=== PATIENT | female | born 1955 | race Asian ===

== ENCOUNTER 2016-11-10 19:55 | Inpatient (IN) | payer MEDICAID, OTHER ==
[~2016-11-10] VITALS: Ht 157.5 cm; Wt 47.6 kg
[2016-11-10] MEDS ORDERED: Morphine Sulfate 4mg/ml Inj IVP ONE ×2 (21:00→22:45)
--- NOTE | 2016-11-10 21:24 | Emergency Room Report ---
History of Present Illness General Chief Complaint: Abdominal Pain Source: Patient (STEPHEN RITTER M.D.) Present Illness HPI 61 YO F with acute onset left sided substernal non-radiating chest pain without ASSOC sob, nv/diaphoresis AND RLQ pain, sharp non-radiating. Denies urinary complaints. Denies history of renal stones, ovarian cysts. Has history of "abnormal heart beat." Not on medication. EMR indicates previous history of PVCs. (STEPHEN RITTER M.D.) Allergies: Coded Allergies: No Known Allergies (Unverified , 06/30/15) Patient History Past Surgical History: nora Pertinent Family History: none Social History: Denies: alcohol use, drug use, smoking Last Menstrual Period: 2014 Now: No Immunizations: UTD Reviewed Nursing Documentation: PMH: Agreed, PSxH: Agreed (STEPHEN RITTER M.D.) Nursing Documentation-PMH Past Medical History: No History, Except For (STEPHEN RITTER M.D.) Review of Systems All Other Systems: negative except mentioned in HPI (STEPHEN RITTER M.D.) Physical Exam Vital Signs Date Time Temp Pulse Resp B/P Pulse Ox O2 Delivery O2 Flow Rate FiO2 11/10/16 20:24 98.1 72 16 108/61 99 Room Air Sp02 EP Interpretation: reviewed, normal General Appearance: normal inspection, well appearing, no apparent distress, alert Head: normocephalic, atraumatic Eyes: bilateral eye EOMI, bilateral eye PERRL ENT: normal ENT inspection, hearing grossly normal, normal voice Neck: normal inspection, full range of motion, supple, no bony tend Respiratory: normal inspection, lungs clear, normal breath sounds, no respiratory distress, no retraction, no wheezing Cardiovascular #1: regular rate, rhythm, no edema Gastrointestinal: normal inspection, normal bowel sounds, soft, no guarding, no hernia, guarding, other - +++TTP RLQ with guarding. 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 NO CAD risk factors. ECG is NSR. CXR unremarkable for PTX, PNA, cardiomegaly. Will check labs, troponin 2) RLQ pain with guarding. PLAN: Labs, IV morphine, CTAP to r/o cyst, appy (STEPHEN RITTER M.D.) ER Course Please see note from Dr. Ritter. CT with appendicitis. Discussed with Dr. Gibson. Pain meds given. IV hydration and antibiotics begun. Laboratory Tests Test 11/10/16 21:25 11/11/16 06:50 White Blood Count 15.3 K/UL (4.8-10.8) H 14.2 K/UL (4.8-10.8) H Red Blood Count 4.42 M/UL (4.20-5.40) 4.28 M/UL (4.20-5.40) Hemoglobin 12.9 G/DL (12.0-16.0) 12.5 G/DL (12.0-16.0) Hematocrit 40.0 % (37.0-47.0) 38.0 % (37.0-47.0) Mean Corpuscular Volume 91 FL (80-99) 89 FL (80-99) Mean Corpuscular Hemoglobin 29.2 PG (27.0-31.0) 29.3 PG (27.0-31.0) Mean Corpuscular Hemoglobin Concent 32.3 G/DL (32.0-36.0) 33.0 G/DL (32.0-36.0) Red Cell Distribution Width 12.5 % (11.6-14.8) 12.5 % (11.6-14.8) Platelet Count 227 K/UL (150-450) 227 K/UL (150-450) Mean Platelet Volume 5.8 FL (6.5-10.1) L 6.2 FL (6.5-10.1) L Neutrophils (%) (Auto) 79.9 % (45.0-75.0) H % (45.0-75.0) Lymphocytes (%) (Auto) 10.0 % (20.0-45.0) L % (20.0-45.0) Monocytes (%) (Auto) 8.5 % (1.0-10.0) % (1.0-10.0) Eosinophils (%) (Auto) 0.5 % (0.0-3.0) % (0.0-3.0) Basophils (%) (Auto) 1.0 % (0.0-2.0) % (0.0-2.0) Sodium Level 140 mEQ/L (135-145) 141 mEQ/L (135-145) Potassium Level 3.8 mEQ/L (3.4-4.9) 4.4 mEQ/L (3.4-4.9) Chloride Level 100 mEQ/L (98-107) 103 mEQ/L (98-107) Carbon Dioxide Level 29 mEQ/L (20-30) 25 mEQ/L (20-30) Anion Gap 11 (5-15) 13 (5-15) Blood Urea Nitrogen 17 mg/dL (7-23) 14 mg/dL (7-23) Creatinine 0.7 mg/dL (0.5-0.9) 0.6 mg/dL (0.5-0.9) Estimate Glomerular Filtration Rate > 60 mL/min (>60) > 60 mL/min (>60) Glucose Level 101 mg/dL (74-106) 153 mg/dL (74-106) H Calcium Level 9.1 mg/dL (8.6-10.2) 8.7 mg/dL (8.6-10.2) Total Bilirubin 0.5 mg/dL (0.0-1.2) 0.5 mg/dL (0.0-1.2) Aspartate Amino Transferase (AST) 22 U/L (5-40) 48 U/L (5-40) H Alanine Aminotransferase (ALT) 22 U/L (3-33) 43 U/L (3-33) H Alkaline Phosphatase 66 U/L (35-104) 81 U/L (35-104) Total Creatine Kinase 60 U/L (26-140) Creatine Kinase MB 1.8 ng/mL (< 3.8) Creatine Kinase MB Relative Index 3.0 Troponin I < 0.30 ng/mL (<=0.30) Total Protein 6.9 g/dL (6.6-8.7) 6.1 g/dL (6.6-8.7) L Albumin 4.3 g/dL (3.5-5.2) 3.9 g/dL (3.5-5.2) Globulin 2.6 g/dL 2.2 g/dL Albumin/Globulin Ratio 1.6 (1.0-2.7) 1.7 (1.0-2.7) Differential Total Cells Counted 100 Neutrophils % (Manual) 88 % (45-75) H Lymphocytes % (Manual) 5 % (20-45) L Monocytes % (Manual) 5 % (1-10) Eosinophils % (Manual) 0 % (0-3) Basophils % (Manual) 0 % (0-2) Band Neutrophils 2 % (0-8) Platelet Estimate Adequate Platelet Morphology Normal Red Blood Cell Morphology Normal PTT 28 SEC (23-33) Amylase Level 56 U/L (10-110) Lipase 26 U/L (< 60) (Sunil Carson M.D.) EKG Diagnostic Results Rate: normal Rhythm: NSR ST Segments: no acute changes ASA given to the pt in ED: No (STEPHEN RITTER M.D.) Rhythm Strip Diag. Results EP Interpretation: yes Rate: 63 (STEPHEN RITTER M.D.) Chest X-Ray Diagnostic Results EP Interpretation: Yes Findings: no consolidation, no effusion, no pneumothorax, no acute cardiopulmonary disease Number of Views: 1 (STEPHEN RITTER M.D.) CT/MRI/US Diagnostic Results CT/MRI/US Diagnostic Results : Imaging Test Ordered: abd Impression acute appendicitis (Sunil Carson M.D.) Last Vital Signs Date Time Temp Pulse Resp B/P Pulse Ox O2 Delivery O2 Flow Rate FiO2 11/10/16 20:24 98.1 72 16 108/61 99 Room Air Status: improved (STEPHEN RITTER M.D.) Status: improved (Sunil Carson M.D.) Disposition: ADMITTED INPATIENT Condition: Serious Referrals: [employer],REFERRIN (PCP) STEPHEN RITTER M.D. Nov 10, 2016 21:24 Sunil Carson M.D. Nov 10, 2016 23:57
[2016-11-10 22:02] LABS: EOSINOPHILS % (AUTO) 0.5 % (0.0-3.0); MEAN CORPUSCULAR HEMOGLOBIN 29.2 PG (27.0-31.0); MEAN CORPUSCULAR HGB CONC 32.3 G/DL (32.0-36.0); MEAN CORPUSCULAR VOLUME 91 FL (80-99); MEAN PLATELET VOLUME 5.8 FL (6.5-10.1); MONOCYTES % (AUTO) 8.5 % (1.0-10.0); NEUTROPHILS % (AUTO) 79.9 % (45.0-75.0); PLATELET COUNT 227 K/UL (150-450); RED BLOOD COUNT 4.42 M/UL (4.20-5.40); RED CELL DISTRIBUTION WIDTH 12.5 % (11.6-14.8); WHITE BLOOD COUNT 15.3 K/UL (4.8-10.8)
[2016-11-10 22:10] LABS: TROPONIN I < 0.30 ng/mL (<=0.30)
[2016-11-10 22:13] LABS: ALANINE AMINOTRANSFERASE 22 U/L (3-33); ALBUMIN/GLOBULIN RATIO 1.6 (1.0-2.7); ANION GAP 11 (5-15); ASPARTATE AMINO TRANSFERASE 22 U/L (5-40); CALCIUM 9.1 mg/dL (8.6-10.2); CARBON DIOXIDE 29 mEQ/L (20-30); CHLORIDE 100 mEQ/L (98-107); CREATININE 0.7 mg/dL (0.5-0.9); GLOMERULAR FILTRATION RATE > 60 mL/min (>60); HEMOLYSIS 10; POTASSIUM 3.8 mEQ/L (3.4-4.9); SODIUM 140 mEQ/L (135-145); TOTAL PROTEIN 6.9 g/dL (6.6-8.7)
[2016-11-10 22:18] VITALS: BP 102/61
[2016-11-10 22:23] LABS: CKMB 1.8 ng/mL (< 3.8)
[2016-11-10] MEDS ORDERED: fentaNYL 100 mcg/2 mL IV ONE (23:00)
[2016-11-10 23:10] VITALS: BP 111/60
[2016-11-10] MEDS ORDERED: Nitroglycerin Subl 0.4mg tab (Bottle Of 25) SL PRN (23:15)
[2016-11-10] MEDS ORDERED: Miralax 17gm pkt ORAL PRN (23:15)
[2016-11-10] MEDS ORDERED: Mylanta II UD 30ml ORAL PRN (23:15)
[2016-11-10] MEDS ORDERED: Morphine Sulfate 2mg/ml Inj IVP PRN (23:15)
[2016-11-11] VITALS (16 sets, daily range): BP systolic 90–122; BP diastolic 54–74
[2016-11-11] MEDS ORDERED: Cefepime 1gm vial ONE (00:20)
[2016-11-11] MEDS ORDERED: Propofol 10mg/ml 20ml IV ONE (00:37)
[2016-11-11] MEDS ORDERED: Bupivacaine 0.25% Inj 30ml INJ ONE (00:37)
[2016-11-11] MEDS ORDERED: Bupivacaine w/Epi 0.25% 30ml Vial INJ ONE (00:37)
[2016-11-11] MEDS ORDERED: Bacitracin 50000 Units Vial ONE (00:37)
[2016-11-11] MEDS ORDERED: VITAMIN E100 UNI2 ORAL (00:52)
[2016-11-11] MEDS ORDERED: VITAMIN C250 MG ORAL (00:52)
[2016-11-11] MEDS ORDERED: VITAMIN B-12100 MCG ORAL (00:52)
[2016-11-11] MEDS ORDERED: ASPIR 8181 MG ORAL (00:52)
[2016-11-11] MEDS ORDERED: D5 1/2NS 1,000 ML IV SCH (01:00)
--- NOTE | 2016-11-11 01:06 | Pre-Procedure Note/Attestation ---
Pre-Procedure Note/Attestation Complete Prior to Procedure Planned Procedure: not applicable Procedure Narrative: Laparocopic appendectomy possible open appendectomy Indications for Procedure Pre-Operative Diagnosis: acute appendicitis Attestation I attest that I discussed the nature of the procedure; its benefits; risks and complications; and alternatives (and the risks and benefits of such alternatives ), prior to the procedure, with the patient (or the patient's legal utility sales representative). I attest that, if there was a reasonable possibility of needing a blood transfusion, the patient (or the patient's legal utility sales representative) was given the [facility] standardized written summary, pursuant to the [place] Blood Safety Act ([place] Health and Safety Code # 1645, as amended). I attest that I re-evaluated the patient just prior to the surgery and that there has been no change in the patient's H&P, except as documented below: LISBETH SANDERSON Nov 11, 2016 01:06
--- NOTE | 2016-11-11 01:14 | Anethesia Preoperative Eval ---
Anesthesia Pre-op PMH/ROS General Date of Evaluation: Nov 11, 2016 Anesthesiologist: Willis ASA Score: ASA 2 Mallampati Score Class I : Soft palate, uvula, fauces, pillars visible Class II: Soft palate, uvula, fauces visible Class III: Soft palate, base of uvula visible Class IV: Only hard plate visible Mallampati Classification: Class II Surgeon: Paige Diagnosis: Acute appendicitis Surgical Procedure: Laparoscopic appendectomy Anesthesia History: none Family History: no anesthesia problems Allergies: Coded Allergies: No Known Allergies (Unverified , 06/30/15) Medications: see eMAR Past Medical History Cardiovascular: Reports: HTN, Denies: CAD, [place], arrhythmia, other, valve dz Pulmonary: Denies: COPD, MAYRA, asthma, other Gastrointestinal/Genitourinary: Reports: GERD, Denies: CRI, ESRD, other Neurologic/Psychiatric: Denies: CVA, TIA, dementia, depression/anxiety, other Endocrine: Denies: DM, hypothyroidism, other, steroids HEENT: Denies: RAMONA (L), RAMONA (R), cataract (L), cataract (R), glaucoma, other Hematology/Immune: Denies: DVT, anemia, bleeding disorder, other Musculoskeletal/Integumentary: Denies: DDD, DJD, OA, RA, edema, other PSxH Narrative: Denies Anesthesia Pre-op Phys. Exam Physician Exam Last Vital Signs Date Time Temp Pulse Resp B/P Pulse Ox O2 Delivery O2 Flow Rate FiO2 11/11/16 00:46 98.4 73 20 117/70 99 Room Air Constitutional: NAD Cardiovascular: RRR Respiratory: CTA Airway Exam Mallampati Score: Class II MO: full ROM: full Teeth: intact Anesthesia Pre-op A/P Labs Hematology Test 11/10/16 21:25 White Blood Count 15.3 K/UL (4.8-10.8) H Red Blood Count 4.42 M/UL (4.20-5.40) Hemoglobin 12.9 G/DL (12.0-16.0) Hematocrit 40.0 % (37.0-47.0) Mean Corpuscular Volume 91 FL (80-99) Mean Corpuscular Hemoglobin 29.2 PG (27.0-31.0) Mean Corpuscular Hemoglobin Concent 32.3 G/DL (32.0-36.0) Red Cell Distribution Width 12.5 % (11.6-14.8) Platelet Count 227 K/UL (150-450) Mean Platelet Volume 5.8 FL (6.5-10.1) L Neutrophils (%) (Auto) 79.9 % (45.0-75.0) H Lymphocytes (%) (Auto) 10.0 % (20.0-45.0) L Monocytes (%) (Auto) 8.5 % (1.0-10.0) Eosinophils (%) (Auto) 0.5 % (0.0-3.0) Basophils (%) (Auto) 1.0 % (0.0-2.0) Chemistry Test 11/10/16 21:25 Sodium Level 140 mEQ/L (135-145) Potassium Level 3.8 mEQ/L (3.4-4.9) Chloride Level 100 mEQ/L (98-107) Carbon Dioxide Level 29 mEQ/L (20-30) Anion Gap 11 (5-15) Blood Urea Nitrogen 17 mg/dL (7-23) Creatinine 0.7 mg/dL (0.5-0.9) Estimat Glomerular Filtration Rate > 60 mL/min (>60) Glucose Level 101 mg/dL (74-106) Calcium Level 9.1 mg/dL (8.6-10.2) Total Bilirubin 0.5 mg/dL (0.0-1.2) Aspartate Amino Transf (AST/SGOT) 22 U/L (5-40) Alanine Aminotransferase (ALT/SGPT) 22 U/L (3-33) Alkaline Phosphatase 66 U/L (35-104) Total Creatine Kinase 60 U/L (26-140) Creatine Kinase MB 1.8 ng/mL (< 3.8) Creatine Kinase MB Relative Index 3.0 Troponin I < 0.30 ng/mL (<=0.30) Total Protein 6.9 g/dL (6.6-8.7) Albumin 4.3 g/dL (3.5-5.2) Globulin 2.6 g/dL Albumin/Globulin Ratio 1.6 (1.0-2.7) Studies Pre-op Studies: EKG - sr Risk Assessment & Plan Assessment: ASA IIE Plan: GA Status Change Before Surgery: No Pre-Antibiotics Drug: MASON ALLEN M.D. Nov 11, 2016 01:14
[2016-11-11] MEDS ORDERED: fentaNYL 100 mcg/2 mL IV PRN (01:15)
[2016-11-11] MEDS ORDERED: Labetalol 5mg/ml 20ml vial IV PRN (01:15)
[2016-11-11] MEDS ORDERED: Hydromorphone 0.5mg/0.5ml inj IVP PRN (01:15)
[2016-11-11] MEDS ORDERED: DiphenhydrAMINE 50mg/ml Inj IVP PRN (01:15)
[2016-11-11] MEDS ORDERED: LR 1000ml 1,000 ML IVLG SCH (01:15)
--- NOTE | 2016-11-11 01:16 | Immediate Post-Op Evaluation ---
Immediate Post-Op Evalulation Immediate Post-Op Evalulation Procedure: Laparoscopic appendectomy Date of Evaluation: Nov 11, 2016 Time of Evaluation: 02:47 IV Fluids: 1L Blood Products: 0 Estimated Blood Loss: min Urinary Output: 600 Blood Pressure Systolic: 121 Blood Pressure Diastolic: 74 Pulse Rate: 77 Respiratory Rate: 17 O2 Sat by Pulse Oximetry: 100 Temperature (Fahrenheit): 97.8 Pain Score (1-10): 0 Nausea: No Vomiting: No Complications 0 Patient Status: awake, reacts, patent, none Hydration Status: adequate Drug: Cefepime 1g Given Within 1 Hr of Incision: Yes Time Given: 01:15 MASON MAN M.D. Nov 11, 2016 01:16
[2016-11-11] MEDS ORDERED: LR 1000ml ONE (01:20)
[2016-11-11] MEDS ORDERED: NS Irrig 1000ml ONE (01:20)
[2016-11-11] MEDS ORDERED: Ketorolac 30mg Inj ONE (01:20)
[2016-11-11] MEDS ORDERED: fentaNYL 250mcg/5ml ONE (01:20)
[2016-11-11] MEDS ORDERED: Sterile Water Irrig 1000ml IRRIG ONE (01:20)
[2016-11-11] MEDS ORDERED: Zemuron 50mg/5ml Inj IV ONE (01:20)
[2016-11-11] MEDS ORDERED: Midazolam 2mg/2ml Inj ONE (01:20)
[2016-11-11] MEDS ORDERED: Lidocaine 1% MPF 10mg/ml 5ml ONE (01:20)
[2016-11-11] MEDS ORDERED: Dexamethasone 4mg/ml vial ONE (01:20)
--- NOTE | 2016-11-11 02:34 | Brief Operative Note ---
Immediate Post Operative Note Operative Note Pre-op Diagnosis: acute appendicitis Procedure: Laparascopic appendectomy Post-op Diagnosis: acute appy Post-op Diagnosis: same as pre-op Surgeon: MD Kamla Tool Grinding Technician: none Anesthesiologist: Dr. Bains Anesthesia: general Specimen: yes Complications: none Condition: stable Estimated Blood Loss: minimal Drains: none Implant(s) used?: No LISBETH SANDERSON Nov 11, 2016 02:34
[2016-11-11] MEDS ORDERED: Metoclopramide 10mg/2ml Inj IVP PRN (02:45)
[2016-11-11] MEDS ORDERED: Acetaminophen 650 MG SUPP RECTAL PRN (02:45)
--- NOTE | 2016-11-11 04:28 | Consultation ---
DATE OF CONSULTATION: 11/11/2016 PREOPERATIVE CONSULTATION CONSULTING PHYSICIAN: Марина Gibson M.D. REQUESTING PHYSICIAN: Atif Garcia M.D. REASON FOR CONSULTATION: Abdominal pain. HISTORY OF PRESENT ILLNESS: This is a 61-year-old oriental female, who presented to emergency room complaining of abdominal pain for 1 day. The pain apparently is located at right lower quadrant and epigastrium. She denies any nausea or vomiting, but she stated that she did not have any appetite. She had a normal bowel movement yesterday. She denies fever, cough, dysuria, or frequency. She denies any previous history of similar pain. PAST MEDICAL HISTORY: She denies allergies, asthma, diabetes, hypertension, or renal diseases. Apparently, she has a history of cardiac arrhythmia. PAST SURGICAL HISTORY: Surgeries include laparoscopy cholecystectomy. MEDICATIONS: None. SOCIAL HISTORY: The patient is a 61-year-old oriental female, who is , mother of 2 children. 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 Denies smoking or drinking. REVIEW OF SYSTEMS: Noncontributory. PHYSICAL EXAMINATION: GENERAL: The patient appeared to be a well-developed and well-nourished 61-year-old oriental female, lying on the gurney, complaining of abdominal pain. HEENT: Head is normocephalic and atraumatic. Eyes, pupils are equal, round, and reactive to light. Mouth is clear. NECK: There is no palpable thyromegaly or adenopathy. CHEST: Clear to auscultation and percussion. HEART: There is no gallop or murmur. S1 and S2 are within normal limits. ABDOMEN: Soft and flat with tenderness and guarding at right lower quadrant. Bowel sounds are present. There is no palpable organomegaly. GENITAL: Normal. EXTREMITIES: Within normal limits. LABORATORY DATA: CBC has shown a WBC of 15,300 with a left shift. Chemistry is normal. CAT scan of the abdomen has been interpreted as acute appendicitis. ASSESSMENT: Acute appendicitis. PLAN: After rehydration, the patient will undergo a laparoscopy appendectomy, possible open appendectomy. The risks and benefits have been explained to her, she understood and granted consent. Марина Gibson M.D. DR: Gokul JOB#: [id number] CC:
[2016-11-11] MEDS: HYDROmorphone 1mg/ml Carpuject IVP PRN ×2 (04:35→21:31)
[2016-11-11] MEDS: D5 1/2NS w/KCl 20mEq 1,000 ML IV SCH ×3 (06:00→22:35)
[2016-11-11 07:33] LABS: ALANINE AMINOTRANSFERASE 43 U/L (3-33); ALBUMIN/GLOBULIN RATIO 1.7 (1.0-2.7); AMYLASE 56 U/L (10-110); ANION GAP 13 (5-15); ASPARTATE AMINO TRANSFERASE 48 U/L (5-40); CALCIUM 8.7 mg/dL (8.6-10.2); CARBON DIOXIDE 25 mEQ/L (20-30); CHLORIDE 103 mEQ/L (98-107); CREATININE 0.6 mg/dL (0.5-0.9); GLOMERULAR FILTRATION RATE > 60 mL/min (>60); HEMOLYSIS 4; LIPASE 26 U/L (< 60); POTASSIUM 4.4 mEQ/L (3.4-4.9); SODIUM 141 mEQ/L (135-145); TOTAL PROTEIN 6.1 g/dL (6.6-8.7)
[2016-11-11 07:40] LABS: MEAN CORPUSCULAR HEMOGLOBIN 29.3 PG (27.0-31.0); MEAN CORPUSCULAR VOLUME 89 FL (80-99); MEAN PLATELET VOLUME 6.2 FL (6.5-10.1); PLATELET COUNT 227 K/UL (150-450); RED BLOOD COUNT 4.28 M/UL (4.20-5.40); RED CELL DISTRIBUTION WIDTH 12.5 % (11.6-14.8); WHITE BLOOD COUNT 14.2 K/UL (4.8-10.8)
--- NOTE | 2016-11-11 08:09 | 48 Hour Post Anesthesia Eval ---
Post Anesthesia Evaluation Procedure: Laparoscopic appendectomy Date of Evaluation: Nov 11, 2016 Time of Evaluation: 08:08 Blood Pressure Systolic: 102 0: 61 Pulse Rate: 74 Respiratory Rate: 20 Temperature (Fahrenheit): 97.6 O2 Sat by Pulse Oximetry: 99 Airway: patent Nausea: No Vomiting: No Pain Intensity: 3 Hydration Status: adequate Cardiopulmonary Status: stable Mental Status/LOC: patient returned to baseline Follow-up Care/Observations: n/a Post-Anesthesia Complications: none Follow-up care needed: N/A ANCA VILLAVICENCIO M.D. Nov 11, 2016 08:09
[2016-11-11 09:00] LABS: BAND NEUTROPHILS % (MANUAL) 2 % (0-8); BASOPHILS % (MANUAL) 0 % (0-2); EOSINOPHILS % (MANUAL) 0 % (0-3); LYMPHOCYTES % (MANUAL) 5 % (20-45); NEUTROPHILS % (MANUAL) 88 % (45-75); PLATELET ESTIMATE ADEQUATE; PLATELET MORPHOLOGY NORMAL; TOTAL CELLS COUNTED 100
[2016-11-11] MEDS: Heparin 5000 units/ml inj SUBQ SCH ×2 (09:05→21:21)
--- NOTE | 2016-11-11 13:59 | GI Initial Consult Note ---
History of Present Illness General Date patient seen: Nov 11, 2016 Time patient seen: 11:00 Reason for Hospitalization: Abdominal Pain Referring physician: WERO Reason for Consultation: ABDOMINAL PAIN Present Illness HPI 61 YO F with acute onset left sided substernal non-radiating chest pain without ASSOC sob, nv/diaphoresis AND RLQ pain, sharp non-radiating. Denies urinary complaints. Denies history of renal stones, ovarian cysts. Has history of "abnormal heart beat." Not on medication. EMR indicates previous history of PVCs. GI NOTE: HPI as noted above. Pt seen on floor awake, A&Ox4 NAD s/p lap appy with abdominal incisions C/D/I. Pt c/o of most likely surgical pain at this time. Pt feels fatigue, no other complaints at this time. Pt presents with classic symptoms for appendicitis. Immediate Post Operative Note Operative Note Pre-op Diagnosis: acute appendicitis Procedure: Laparascopic appendectomy LISBETH SANDERSON - Nov 11, 2016 02:34 Home Meds Reported Medications Vitamin E Acid Succinate (VITAMIN E) 100 Unit Tablet, 100 UNIT ORAL DAILY, TAB 11/11/16 Cyanocobalamin (Vitamin B-12) 100 Mcg Tablet, 100 MCG ORAL DAILY, #30 TAB 0 Refills 11/11/16 Ascorbic Acid* (VITAMIN C*) 250 Mg Tablet, 250 MG ORAL DAILY, #30 TAB 0 Refills 11/11/16 Aspirin* (ASPIR 81*) 81 Mg Tablet.dr, 81 MG ORAL DAILY, TAB 11/11/16 Allergies: Coded Allergies: No Known Allergies (Unverified , 06/30/15) Patient History PMH Narrative Past Surgical History: nora Pertinent Family History: none Social History: Denies: alcohol use, drug use, smoking Last Menstrual Period: 2014 Now: No Immunizations: UTD Reviewed Nursing Documentation: PMH: Agreed, PSxH: Agreed (STEPHEN RITTER M.D.) Nursing Documentation-PMH Past Medical History: No History, Except For (STEPHEN RITTER M.D.) Review of Systems All Other Systems: negative except mentioned in HPI Physical Exam Vital Signs Date Time Temp Pulse Resp B/P Pulse Ox O2 Delivery O2 Flow Rate FiO2 11/10/16 20:24 98.1 72 16 108/61 99 Room Air 11/11/16 02:42 6.0 Sp02 EP Interpretation: reviewed Labs Laboratory Tests Test 11/10/16 21:25 11/11/16 06:50 White Blood Count 15.3 K/UL (4.8-10.8) H 14.2 K/UL (4.8-10.8) H Red Blood Count 4.42 M/UL (4.20-5.40) 4.28 M/UL (4.20-5.40) Hemoglobin 12.9 G/DL (12.0-16.0) 12.5 G/DL (12.0-16.0) Hematocrit 40.0 % (37.0-47.0) 38.0 % (37.0-47.0) Mean Corpuscular Volume 91 FL (80-99) 89 FL (80-99) Mean Corpuscular Hemoglobin 29.2 PG (27.0-31.0) 29.3 PG (27.0-31.0) Mean Corpuscular Hemoglobin Concent 32.3 G/DL (32.0-36.0) 33.0 G/DL (32.0-36.0) Red Cell Distribution Width 12.5 % (11.6-14.8) 12.5 % (11.6-14.8) Platelet Count 227 K/UL (150-450) 227 K/UL (150-450) Mean Platelet Volume 5.8 FL (6.5-10.1) L 6.2 FL (6.5-10.1) L Neutrophils (%) (Auto) 79.9 % (45.0-75.0) H % (45.0-75.0) Lymphocytes (%) (Auto) 10.0 % (20.0-45.0) L % (20.0-45.0) Monocytes (%) (Auto) 8.5 % (1.0-10.0) % (1.0-10.0) Eosinophils (%) (Auto) 0.5 % (0.0-3.0) % (0.0-3.0) Basophils (%) (Auto) 1.0 % (0.0-2.0) % (0.0-2.0) Sodium Level 140 mEQ/L (135-145) 141 mEQ/L (135-145) Potassium Level 3.8 mEQ/L (3.4-4.9) 4.4 mEQ/L (3.4-4.9) Chloride Level 100 mEQ/L (98-107) 103 mEQ/L (98-107) Carbon Dioxide Level 29 mEQ/L (20-30) 25 mEQ/L (20-30) Anion Gap 11 (5-15) 13 (5-15) Blood Urea Nitrogen 17 mg/dL (7-23) 14 mg/dL (7-23) Creatinine 0.7 mg/dL (0.5-0.9) 0.6 mg/dL (0.5-0.9) Estimat Glomerular Filtration Rate > 60 mL/min (>60) > 60 mL/min (>60) Glucose Level 101 mg/dL (74-106) 153 mg/dL (74-106) H Calcium Level 9.1 mg/dL (8.6-10.2) 8.7 mg/dL (8.6-10.2) Total Bilirubin 0.5 mg/dL (0.0-1.2) 0.5 mg/dL (0.0-1.2) Aspartate Amino Transf (AST/SGOT) 22 U/L (5-40) 48 U/L (5-40) H Alanine Aminotransferase (ALT/SGPT) 22 U/L (3-33) 43 U/L (3-33) H Alkaline Phosphatase 66 U/L (35-104) 81 U/L (35-104) Total Creatine Kinase 60 U/L (26-140) Creatine Kinase MB 1.8 ng/mL (< 3.8) Creatine Kinase MB Relative Index 3.0 Troponin I < 0.30 ng/mL (<=0.30) Total Protein 6.9 g/dL (6.6-8.7) 6.1 g/dL (6.6-8.7) L Albumin 4.3 g/dL (3.5-5.2) 3.9 g/dL (3.5-5.2) Globulin 2.6 g/dL 2.2 g/dL Albumin/Globulin Ratio 1.6 (1.0-2.7) 1.7 (1.0-2.7) Differential Total Cells Counted 100 Neutrophils % (Manual) 88 % (45-75) H Lymphocytes % (Manual) 5 % (20-45) L Monocytes % (Manual) 5 % (1-10) Eosinophils % (Manual) 0 % (0-3) Basophils % (Manual) 0 % (0-2) Band Neutrophils 2 % (0-8) Platelet Estimate Adequate Platelet Morphology Normal Red Blood Cell Morphology Normal Activated Partial Thromboplast Time 28 SEC (23-33) Amylase Level 56 U/L (10-110) Lipase 26 U/L (< 60) General Appearance: well appearing, no apparent distress, alert Head: normocephalic EENT: normal ENT inspection Neck: full range of motion, supple Respiratory: normal breath sounds, no respiratory distress Cardiovascular: normal rate Gastrointestinal: other - incision sites c/d/i Neurologic: normal inspection, alert, oriented x3, responsive Psychiatric: normal inspection, judgement/insight normal, memory normal Skin: normal inspection, normal color Lymphatic: normal inspection, no adenopathy Current Medications Current Medications Medications (Trade) Dose Ordered Sig/Ronnie Route PRN Reason Start Time Stop Time Status Last Admin Dose Admin Acetaminophen (Tylenol) 650 mg Q4H PRN RECTAL FEVER 11/11/16 02:45 12/11/16 02:44 Al Hydroxide/Mg Hydroxide (Mylanta II) 30 ml Q6H PRN ORAL dyspepsia 11/10/16 23:15 12/10/16 23:14 Dextrose STAT PRN IV Hypoglycemia 11/10/16 23:15 12/10/16 23:14 Dextrose/ Electrolytes (D5 0.45%NS W/ KCl 20mEq) 1,000 ml @ 100 mls/hr Q10H IV 11/11/16 02:34 12/11/16 02:33 11/11/16 06:00 Diphenhydramine HCl (Benadryl) 25 mg Q6H PRN ORAL Itching/Pruritis 11/11/16 03:30 12/11/16 03:29 Heparin Sodium (Porcine) (Heparin 5000 units/ml) 5,000 units EVERY 12 HOURS SUBQ 11/11/16 09:00 12/11/16 08:59 11/11/16 09:05 Hydromorphone HCl (Dilaudid) 0.5 mg Q3H PRN IVP Pain Score 1-3 11/11/16 02:45 11/18/16 02:44 Hydromorphone HCl (Dilaudid) 1 mg Q3H PRN IVP pain score 4-6 11/11/16 02:45 11/18/16 02:44 11/11/16 04:35 Metoclopramide HCl (Reglan) 10 mg Q6H PRN IVP Nausea & Vomiting 11/11/16 02:45 12/11/16 02:44 Morphine Sulfate (Morphine Sulfate) 2 mg Q4H PRN IVP severe Pain (Pain Scale 7-10) 11/10/16 23:15 11/17/16 23:14 Nitroglycerin (Ntg) 0.4 mg Q5M X 3 DOSES PRN SL Prn Chest Pain 11/10/16 23:15 12/10/16 23:14 Ondansetron HCl (Zofran) 4 mg Q6H PRN IVP Nausea & Vomiting 11/11/16 02:45 12/11/16 02:44 Polyethylene Glycol (Miralax) 17 gm HSPRN PRN ORAL Constipation 11/10/16 23:15 12/10/16 23:14 Temazepam (Restoril) 15 mg HSPRN PRN ORAL Insomnia 11/10/16 23:15 11/17/16 23:14 GI: Plan Problems: (1) S/P laparoscopic appendectomy (2) Right-sided chest pain (3) Acute appendicitis (4) RLQ abdominal pain Plan fu surgical recs symptomatic treatment pain mgmt zofran prn H2 fu labs adv diet as tolerated Discussed with Dr. Mckinney. Thank you for referring this patient, we will follow. Georgia Montoya N.P. Nov 11, 2016 13:58
--- NOTE | 2016-11-11 17:24 | General Surgery Progress Note ---
General Surgery-Progress Note Subjective Procedure Performed Laparascopic appendectomy Symptoms: improved Objective Last 24 Hour Vital Signs Date Time Temp Pulse Resp B/P Pulse Ox O2 Delivery O2 Flow Rate FiO2 11/11/16 16:00 97.7 60 13 90/60 97 Room Air 11/11/16 12:00 97.9 91 20 96/56 98 Room Air 11/11/16 08:09 74 20 99 11/11/16 08:00 97.7 65 20 91/54 97 Room Air 11/11/16 04:36 97.9 61 16 98/60 97 Room Air 11/11/16 04:15 98.2 61 15 115/67 98 Room Air 11/11/16 04:00 63 19 116/64 100 Simple Mask 6.0 11/11/16 03:45 67 17 113/67 100 Room Air 11/11/16 03:30 65 16 111/63 100 Room Air 11/11/16 03:15 61 14 120/60 100 Room Air 11/11/16 03:00 62 13 122/69 100 Room Air 11/11/16 02:50 67 17 119/67 100 Room Air 11/11/16 02:45 63 19 121/74 100 Simple Mask 6.0 11/11/16 02:43 77 17 100 11/11/16 02:42 97.8 77 16 121/74 100 Simple Mask 6.0 11/11/16 01:21 98.4 81 16 113/64 100 Room Air 11/11/16 01:21 81 16 113/64 100 Room Air 11/11/16 00:46 98.4 73 20 117/70 99 Room Air 11/10/16 23:10 98.1 71 15 111/60 98 Room Air 11/10/16 22:18 67 16 102/61 98 Room Air 11/10/16 22:05 98.1 11/10/16 20:24 98.1 72 16 108/61 99 Room Air I&O Intake and Output 11/10/16 11/11/16 19:00 07:00 Intake Total 300 ml Output Total 0 ml Balance 300 ml Intake Oral 0 ml IV Total 300 ml Output Urine Total 0 ml Dressing: dry Drains: none Respiratory: clear Abdomen: soft, flat, tenderness, present bowel sounds Extremities: no edema, no tenderness Laboratory Tests Test 11/10/16 21:11/11/16 06:50 White Blood Count 15.3 K/UL (4.8-10.8) H 14.2 K/UL (4.8-10.8) H Red Blood Count 4.42 M/UL (4.20-5.40) 4.28 M/UL (4.20-5.40) Hemoglobin 12.9 G/DL (12.0-16.0) 12.5 G/DL (12.0-16.0) Hematocrit 40.0 % (37.0-47.0) 38.0 % (37.0-47.0) Mean Corpuscular Volume 91 FL (80-99) 89 FL (80-99) Mean Corpuscular Hemoglobin 29.2 PG (27.0-31.0) 29.3 PG (27.0-31.0) Mean Corpuscular Hemoglobin Concent 32.3 G/DL (32.0-36.0) 33.0 G/DL (32.0-36.0) Red Cell Distribution Width 12.5 % (11.6-14.8) 12.5 % (11.6-14.8) Platelet Count 227 K/UL (150-450) 227 K/UL (150-450) Mean Platelet Volume 5.8 FL (6.5-10.1) L 6.2 FL (6.5-10.1) L Neutrophils (%) (Auto) 79.9 % (45.0-75.0) H % (45.0-75.0) Lymphocytes (%) (Auto) 10.0 % (20.0-45.0) L % (20.0-45.0) Monocytes (%) (Auto) 8.5 % (1.0-10.0) % (1.0-10.0) Eosinophils (%) (Auto) 0.5 % (0.0-3.0) % (0.0-3.0) Basophils (%) (Auto) 1.0 % (0.0-2.0) % (0.0-2.0) Sodium Level 140 mEQ/L (135-145) 141 mEQ/L (135-145) Potassium Level 3.8 mEQ/L (3.4-4.9) 4.4 mEQ/L (3.4-4.9) Chloride Level 100 mEQ/L (98-107) 103 mEQ/L (98-107) Carbon Dioxide Level 29 mEQ/L (20-30) 25 mEQ/L (20-30) Anion Gap 11 (5-15) 13 (5-15) Blood Urea Nitrogen 17 mg/dL (7-23) 14 mg/dL (7-23) Creatinine 0.7 mg/dL (0.5-0.9) 0.6 mg/dL (0.5-0.9) Estimat Glomerular Filtration Rate > 60 mL/min (>60) > 60 mL/min (>60) Glucose Level 101 mg/dL (74-106) 153 mg/dL (74-106) H Calcium Level 9.1 mg/dL (8.6-10.2) 8.7 mg/dL (8.6-10.2) Total Bilirubin 0.5 mg/dL (0.0-1.2) 0.5 mg/dL (0.0-1.2) Aspartate Amino Transf (AST/SGOT) 22 U/L (5-40) 48 U/L (5-40) H Alanine Aminotransferase (ALT/SGPT) 22 U/L (3-33) 43 U/L (3-33) H Alkaline Phosphatase 66 U/L (35-104) 81 U/L (35-104) Total Creatine Kinase 60 U/L (26-140) Creatine Kinase MB 1.8 ng/mL (< 3.8) Creatine Kinase MB Relative Index 3.0 Troponin I < 0.30 ng/mL (<=0.30) Total Protein 6.9 g/dL (6.6-8.7) 6.1 g/dL (6.6-8.7) L Albumin 4.3 g/dL (3.5-5.2) 3.9 g/dL (3.5-5.2) Globulin 2.6 g/dL 2.2 g/dL Albumin/Globulin Ratio 1.6 (1.0-2.7) 1.7 (1.0-2.7) Differential Total Cells Counted 100 Neutrophils % (Manual) 88 % (45-75) H Lymphocytes % (Manual) 5 % (20-45) L Monocytes % (Manual) 5 % (1-10) Eosinophils % (Manual) 0 % (0-3) Basophils % (Manual) 0 % (0-2) Band Neutrophils 2 % (0-8) Platelet Estimate Adequate Platelet Morphology Normal Red Blood Cell Morphology Normal Activated Partial Thromboplast Time 28 SEC (23-33) Amylase Level 56 U/L (10-110) Lipase 26 U/L (< 60) Assessment Post-op Diagnosis acute appy Plan Additional Comments continue IV antibiotics LISBETH SANDERSON Nov 11, 2016 17:24
--- NOTE | 2016-11-11 17:37 | History and Physical ---
History of Present Illness General Date patient seen: Nov 11, 2016 Reason for Hospitalization: Abdominal Pain Present Illness HPI 61 year old fame with acute onset left sided substernal non-radiating chest pain Denies urinary complaints. Denies history of renal stones, ovarian cysts. Pt was diagnosed to have appendicitis, and underwent appendectomy already. Feeling much better already Allergies: Coded Allergies: No Known Allergies (Unverified , 06/30/15) Medication History Scheduled Ascorbic Acid* (Vitamin C*), 250 MG ORAL DAILY, (Reported) Aspirin* (Aspir 81*), 81 MG ORAL DAILY, (Reported) Cyanocobalamin (Vitamin B-12), 100 MCG ORAL DAILY, (Reported) Vitamin E Acid Succinate (Vitamin E), 100 UNIT ORAL DAILY, (Reported) Patient History Healthcare decision maker Resuscitation status Full Code Advanced Directive on File No Review of Systems All Other Systems: negative except mentioned in HPI Physical Exam General Appearance: WD/WN Lines, tubes and drains: peripheral HEENT: normocephalic Neck: non-tender Respiratory/Chest: chest wall non-tender, lungs clear Cardiovascular/Chest: normal peripheral pulses, normal rate Abdomen: non tender Genitourinary/Rectal: normal genital exam Extremities: normal range of motion Last 24 Hour Vital Signs Date Time Temp Pulse Resp B/P Pulse Ox O2 Delivery O2 Flow Rate FiO2 11/11/16 16:00 97.7 60 13 90/60 97 Room Air 11/11/16 12:00 97.9 91 20 96/56 98 Room Air 11/11/16 08:09 74 20 99 11/11/16 08:00 97.7 65 20 91/54 97 Room Air 11/11/16 04:36 97.9 61 16 98/60 97 Room Air 11/11/16 04:15 98.2 61 15 115/67 98 Room Air 11/11/16 04:00 63 19 116/64 100 Simple Mask 6.0 11/11/16 03:45 67 17 113/67 100 Room Air 11/11/16 03:30 65 16 111/63 100 Room Air 11/11/16 03:15 61 14 120/60 100 Room Air 11/11/16 03:00 62 13 122/69 100 Room Air 11/11/16 02:50 67 17 119/67 100 Room Air 11/11/16 02:45 63 19 121/74 100 Simple Mask 6.0 11/11/16 02:43 77 17 100 11/11/16 02:42 97.8 77 16 121/74 100 Simple Mask 6.0 11/11/16 01:21 98.4 81 16 113/64 100 Room Air 11/11/16 01:21 81 16 113/64 100 Room Air 11/11/16 00:46 98.4 73 20 117/70 99 Room Air 11/10/16 23:10 98.1 71 15 111/60 98 Room Air 11/10/16 22:18 67 16 102/61 98 Room Air 11/10/16 22:05 98.1 11/10/16 20:24 98.1 72 16 108/61 99 Room Air Intake and Output 11/10/16 11/11/16 19:00 07:00 Intake Total 300 ml Output Total 0 ml Balance 300 ml Intake Oral 0 ml IV Total 300 ml Output Urine Total 0 ml Laboratory Tests Test 11/10/16 21:25 11/11/16 06:50 White Blood Count 15.3 K/UL (4.8-10.8) H 14.2 K/UL (4.8-10.8) H Red Blood Count 4.42 M/UL (4.20-5.40) 4.28 M/UL (4.20-5.40) Hemoglobin 12.9 G/DL (12.0-16.0) 12.5 G/DL (12.0-16.0) Hematocrit 40.0 % (37.0-47.0) 38.0 % (37.0-47.0) Mean Corpuscular Volume 91 FL (80-99) 89 FL (80-99) Mean Corpuscular Hemoglobin 29.2 PG (27.0-31.0) 29.3 PG (27.0-31.0) Mean Corpuscular Hemoglobin Concent 32.3 G/DL (32.0-36.0) 33.0 G/DL (32.0-36.0) Red Cell Distribution Width 12.5 % (11.6-14.8) 12.5 % (11.6-14.8) Platelet Count 227 K/UL (150-450) 227 K/UL (150-450) Mean Platelet Volume 5.8 FL (6.5-10.1) L 6.2 FL (6.5-10.1) L Neutrophils (%) (Auto) 79.9 % (45.0-75.0) H % (45.0-75.0) Lymphocytes (%) (Auto) 10.0 % (20.0-45.0) L % (20.0-45.0) Monocytes (%) (Auto) 8.5 % (1.0-10.0) % (1.0-10.0) Eosinophils (%) (Auto) 0.5 % (0.0-3.0) % (0.0-3.0) Basophils (%) (Auto) 1.0 % (0.0-2.0) % (0.0-2.0) Sodium Level 140 mEQ/L (135-145) 141 mEQ/L (135-145) Potassium Level 3.8 mEQ/L (3.4-4.9) 4.4 mEQ/L (3.4-4.9) Chloride Level 100 mEQ/L (98-107) 103 mEQ/L (98-107) Carbon Dioxide Level 29 mEQ/L (20-30) 25 mEQ/L (20-30) Anion Gap 11 (5-15) 13 (5-15) Blood Urea Nitrogen 17 mg/dL (7-23) 14 mg/dL (7-23) Creatinine 0.7 mg/dL (0.5-0.9) 0.6 mg/dL (0.5-0.9) Estimat Glomerular Filtration Rate > 60 mL/min (>60) > 60 mL/min (>60) Glucose Level 101 mg/dL (74-106) 153 mg/dL (74-106) H Calcium Level 9.1 mg/dL (8.6-10.2) 8.7 mg/dL (8.6-10.2) Total Bilirubin 0.5 mg/dL (0.0-1.2) 0.5 mg/dL (0.0-1.2) Aspartate Amino Transf (AST/SGOT) 22 U/L (5-40) 48 U/L (5-40) H Alanine Aminotransferase (ALT/SGPT) 22 U/L (3-33) 43 U/L (3-33) H Alkaline Phosphatase 66 U/L (35-104) 81 U/L (35-104) Total Creatine Kinase 60 U/L (26-140) Creatine Kinase MB 1.8 ng/mL (< 3.8) Creatine Kinase MB Relative Index 3.0 Troponin I < 0.30 ng/mL (<=0.30) Total Protein 6.9 g/dL (6.6-8.7) 6.1 g/dL (6.6-8.7) L Albumin 4.3 g/dL (3.5-5.2) 3.9 g/dL (3.5-5.2) Globulin 2.6 g/dL 2.2 g/dL Albumin/Globulin Ratio 1.6 (1.0-2.7) 1.7 (1.0-2.7) Differential Total Cells Counted 100 Neutrophils % (Manual) 88 % (45-75) H Lymphocytes % (Manual) 5 % (20-45) L Monocytes % (Manual) 5 % (1-10) Eosinophils % (Manual) 0 % (0-3) Basophils % (Manual) 0 % (0-2) Band Neutrophils 2 % (0-8) Platelet Estimate Adequate Platelet Morphology Normal Red Blood Cell Morphology Normal Activated Partial Thromboplast Time 28 SEC (23-33) Amylase Level 56 U/L (10-110) Lipase 26 U/L (< 60) Height (Feet): 5 Height (Inches): 2.00 Weight (Pounds): 105 Medications Current Medications Medications (Trade) Dose Ordered Sig/Ronnie Route PRN Reason Start Time Stop Time Status Last Admin Dose Admin Acetaminophen (Tylenol) 650 mg Q4H PRN RECTAL FEVER 11/11/16 02:45 12/11/16 02:44 Al Hydroxide/Mg Hydroxide (Mylanta II) 30 ml Q6H PRN ORAL dyspepsia 11/10/16 23:15 12/10/16 23:14 Dextrose STAT PRN IV Hypoglycemia 11/10/16 23:15 12/10/16 23:14 Dextrose/ Electrolytes (D5 0.45%NS W/ KCl 20mEq) 1,000 ml @ 100 mls/hr Q10H IV 11/11/16 02:34 12/11/16 02:33 11/11/16 06:00 Diphenhydramine HCl (Benadryl) 25 mg Q6H PRN ORAL Itching/Pruritis 11/11/16 03:30 12/11/16 03:29 Famotidine (Pepcid I.v.) 20 mg Q12HR IVP 11/12/16 09:00 12/12/16 08:59 Heparin Sodium (Porcine) (Heparin 5000 units/ml) 5,000 units EVERY 12 HOURS SUBQ 11/11/16 09:00 12/11/16 08:59 11/11/16 09:05 Hydromorphone HCl (Dilaudid) 0.5 mg Q3H PRN IVP Pain Score 1-3 11/11/16 02:45 11/18/16 02:44 Hydromorphone HCl (Dilaudid) 1 mg Q3H PRN IVP pain score 4-6 11/11/16 02:45 11/18/16 02:44 11/11/16 04:35 Metoclopramide HCl (Reglan) 10 mg Q6H PRN IVP Nausea & Vomiting 11/11/16 02:45 12/11/16 02:44 Morphine Sulfate (Morphine Sulfate) 2 mg Q4H PRN IVP severe Pain (Pain Scale 7-10) 11/10/16 23:15 11/17/16 23:14 Nitroglycerin (Ntg) 0.4 mg Q5M X 3 DOSES PRN SL Prn Chest Pain 11/10/16 23:15 12/10/16 23:14 Ondansetron HCl (Zofran) 4 mg Q6H PRN IVP Nausea & Vomiting 11/11/16 02:45 12/11/16 02:44 Polyethylene Glycol (Miralax) 17 gm HSPRN PRN ORAL Constipation 11/10/16 23:15 12/10/16 23:14 Temazepam (Restoril) 15 mg HSPRN PRN ORAL Insomnia 11/10/16 23:15 11/17/16 23:14 Assessment/Plan Problem List: (1) Acute appendicitis ICD Codes: K35.80 - Unspecified acute appendicitis SNOMED: 86635138 Qualifiers: Qualified Codes: K35.89 - Other acute appendicitis Assessment/Plan improving advance diet probably dc home in am. FABRICE MARTINO Nov 11, 2016 17:37
[2016-11-11] MEDS: Hydromorphone 0.5mg/0.5ml inj IVP PRN (18:17)
--- NOTE | 2016-11-11 18:18 | Operative Note - Dictated ---
DATE OF OPERATION: 11/11/2016 PREOPERATIVE DIAGNOSIS: Acute appendicitis. POSTOPERATIVE DIAGNOSIS: Acute appendicitis. OPERATION: Laparoscopic appendectomy. COMPLICATION: None. SURGEON: Марина Gibson M.D. ACID REMOVER: None. ANESTHESIA: General with endotracheal tube. ANESTHESIOLOGIST: Dr. Bains. INDICATION: This is a 61-year-old Isom female, who presented to emergency room complaining of abdominal pain for 1 day. The pain was located at the right lower quadrant and epigastrium. Physical examination showed tenderness and guarding at right lower quadrant. CBC showed WBC of 15,300 with left shift. CAT scan of the abdomen was interpreted as acute appendicitis. DESCRIPTION OF PROCEDURE: The patient was placed supine on the operating table and after general anesthesia with endotracheal tube, the abdomen was properly prepped and draped. Initially, a small incision was given above the umbilicus through which a Veress needle was introduced into the intraperitoneal cavity. This cavity was insufflated up to 15 mmHg and then the Veress needle was removed and a 5 mm trocar was placed in the intraperitoneal cavity through the incision above the umbilicus. The laparoscope and camera was introduced into the intraperitoneal cavity through the trocar above the umbilicus and under direct vision, a 5 mm trocar was placed at the suprapubic area and a 12 mm trocar was placed at the left lower quadrant of the abdomen. Initially, a rapid exploration was performed which showed the diaphragms to be normal. The part of the stomach which could be seen was normal. The liver was normal. The patient had adhesion of the omentum to the gallbladder bed and the anterior abdominal wall in this area. The bowels were covered with omentum. An exploration of the right lower quadrant cavity was performed and the appendix was identified which was completely covered with omentum. The omentum was released over the appendix and it was noticed that the patient has a short appendix, but it was severely inflamed and distended. The appendix and mesoappendix was isolated and exposed and then it was ligated and transected with the help of the MAYELA stapler. The appendix was removed from the intraperitoneal cavity through the incision in the left lower quadrant of the abdomen with the help of the Endo pouch. After removal of the appendix, the intraperitoneal cavity was thoroughly irrigated with antibiotic solution and then another exploration was performed. There was no bleeding or complication. The trocars were removed under direct vision. The incisions were infiltrated with a total of 10 mL of Marcaine 0.25%. The incision of fascia of the left lower quadrant of the abdomen was approximated with a [id number] suture with 2-0 Vicryl. The subcutaneous tissue was approximated with 4-0 chromic and the skin incisions were approximated with running subcuticular suture of 4-0 chromic. The patient tolerated the procedure very well and was transferred to recovery room in stable condition and extubated. COUNT: The sponge and needle count correct. ESTIMATED BLOOD LOSS: 10 mL. CONDITION AT END OF PROCEDURE: Condition of the patient at the end of procedure was stable. Марина Gibson M.D. DR: Tomy JOB#: [id number] CC:
--- NOTE | 2016-11-11 20:14 | Cardiology Report ---
APPROVED REPORT EKG Measurement Heart [id number] ME [id number] Normal sinus rhythm Possible Left atrial enlargement Borderline ECG
[2016-11-12] VITALS: BP 93/55
[2016-11-12 04:00] VITALS: BP 101/56
[2016-11-12] MEDS: Hydromorphone 0.5mg/0.5ml inj IVP PRN ×2 (06:32→06:38)
[2016-11-12 07:21] LABS: BASOPHILS % (AUTO) 1.1 % (0.0-2.0); EOSINOPHILS % (AUTO) 2.4 % (0.0-3.0); LYMPHOCYTES % (AUTO) 36.5 % (20.0-45.0); MEAN CORPUSCULAR HEMOGLOBIN 29.2 PG (27.0-31.0); MEAN CORPUSCULAR HGB CONC 32.6 G/DL (32.0-36.0); MEAN CORPUSCULAR VOLUME 89 FL (80-99); MEAN PLATELET VOLUME 6.7 FL (6.5-10.1); MONOCYTES % (AUTO) 8.7 % (1.0-10.0); NEUTROPHILS % (AUTO) 51.3 % (45.0-75.0); PLATELET COUNT 215 K/UL (150-450); RED CELL DISTRIBUTION WIDTH 12.5 % (11.6-14.8); WHITE BLOOD COUNT 6.8 K/UL (4.8-10.8)
[2016-11-12 07:23] LABS: ANION GAP 7 (5-15); CALCIUM 8.4 mg/dL (8.6-10.2); CARBON DIOXIDE 30 mEQ/L (20-30); CHLORIDE 107 mEQ/L (98-107); CREATININE 0.6 mg/dL (0.5-0.9); GLOMERULAR FILTRATION RATE > 60 mL/min (>60); HEMOLYSIS 6; SODIUM 144 mEQ/L (135-145)
[2016-11-12] MEDS: D5 1/2NS w/KCl 20mEq 1,000 ML IV SCH (08:52)
[2016-11-12] MEDS ORDERED: Famotidine 20 MG/ 2ML VIAL IVP SCH (09:00)
[2016-11-12] MEDS: Heparin 5000 units/ml inj SUBQ SCH (09:30)
--- NOTE | 2016-11-12 11:55 | GI Progress Note ---
Assessment/Plan Problems: (1) Acute appendicitis ICD Codes: K35.80 - Unspecified acute appendicitis SNOMED: 87786464 Qualifiers: Qualified Codes: K35.89 - Other acute appendicitis (2) S/P laparoscopic appendectomy ICD Codes: Z90.49 - Acquired absence of other specified parts of digestive tract SNOMED: 9118271, 73018928, [id number] (3) RLQ abdominal pain ICD Codes: R10.31 - Right lower quadrant pain SNOMED: 100714534 Status: stable, progressing Status Narrative Discussed with Dr. Mckinney. Assessment/Plan fu surgical recs symptomatic treatment pain mgmt zofran prn H2 fu labs adv diet as tolerated Subjective Gastrointestinal/Abdominal: Reports: abdominal pain Objective Last 24 Hour Vital Signs Date Time Temp Pulse Resp B/P Pulse Ox O2 Delivery O2 Flow Rate FiO2 11/12/16 04:00 97.5 55 18 101/56 100 Room Air 11/12/16 00:00 97.9 59 16 93/55 97 Room Air 11/11/16 20:00 97.7 63 13 97/58 97 Room Air 11/11/16 16:00 97.7 60 13 90/60 97 Room Air 11/11/16 12:00 97.9 91 20 96/56 98 Room Air Intake and Output 11/11/16 11/12/16 19:00 07:00 Intake Total 900 ml 700 ml Balance 900 ml 700 ml IV Total 900 ml 700 ml # Voids 2 Laboratory Tests Test 11/12/16 05:35 White Blood Count 6.8 K/UL (4.8-10.8) # Red Blood Count 3.90 M/UL (4.20-5.40) L Hemoglobin 11.4 G/DL (12.0-16.0) L Hematocrit 34.9 % (37.0-47.0) L Mean Corpuscular Volume 89 FL (80-99) Mean Corpuscular Hemoglobin 29.2 PG (27.0-31.0) Mean Corpuscular Hemoglobin Concent 32.6 G/DL (32.0-36.0) Red Cell Distribution Width 12.5 % (11.6-14.8) Platelet Count 215 K/UL (150-450) Mean Platelet Volume 6.7 FL (6.5-10.1) Neutrophils (%) (Auto) 51.3 % (45.0-75.0) Lymphocytes (%) (Auto) 36.5 % (20.0-45.0) Monocytes (%) (Auto) 8.7 % (1.0-10.0) Eosinophils (%) (Auto) 2.4 % (0.0-3.0) Basophils (%) (Auto) 1.1 % (0.0-2.0) Sodium Level 144 mEQ/L (135-145) Potassium Level 4.0 mEQ/L (3.4-4.9) Chloride Level 107 mEQ/L (98-107) Carbon Dioxide Level 30 mEQ/L (20-30) Anion Gap 7 (5-15) Blood Urea Nitrogen 11 mg/dL (7-23) Creatinine 0.6 mg/dL (0.5-0.9) Estimat Glomerular Filtration Rate > 60 mL/min (>60) Glucose Level 123 mg/dL (74-106) H Calcium Level 8.4 mg/dL (8.6-10.2) L Height (Feet): 5 Height (Inches): 2.00 Weight (Pounds): 105 General Appearance: no apparent distress, alert, thin Cardiovascular: normal rate Respiratory/Chest: normal breath sounds, no respiratory distress Abdominal Exam: normal bowel sounds, non tender, soft, incision site Georgia Montoya N.P. Nov 12, 2016 11:55
[2016-11-12] MEDS ORDERED: D5W 55ML IV ONE (13:30)
--- NOTE | 2016-11-12 14:25 | Discharge Instructions ---
Discharge Instructions For Congestive Heart Failure Reminder Report to your physician any weight gain of 5 pounds or more in one week. LISBETH SANDERSON Nov 12, 2016 14:25
--- NOTE | 2016-11-12 14:28 | Discharge Instructions ---
Discharge Instructions Discharge Instructions Follow up with: my office in one week Diet: full liquid, regular Resume Normal Activity?: Yes Activity: as tolerated For Surgical Patients Clean and Dry: other - don't remove May shower: Yes For Congestive Heart Failure Reminder Report to your physician any weight gain of 5 pounds or more in one week. LISBETH SANDERSON Nov 12, 2016 14:28
--- NOTE | 2016-11-12 15:12 | Pulmonology Progress Note ---
Assessment/Plan Problems: (1) Acute appendicitis Assessment/Plan improving dc home Subjective ROS Limited/Unobtainable: No Interval Events: tolerating diet Allergies: Coded Allergies: No Known Allergies (Unverified , 06/30/15) Objective Last 24 Hour Vital Signs Date Time Temp Pulse Resp B/P Pulse Ox O2 Delivery O2 Flow Rate FiO2 11/12/16 04:00 97.5 55 18 101/56 100 Room Air 11/12/16 00:00 97.9 59 16 93/55 97 Room Air 11/11/16 20:00 97.7 63 13 97/58 97 Room Air 11/11/16 16:00 97.7 60 13 90/60 97 Room Air Intake and Output 11/11/16 11/12/16 19:00 07:00 Intake Total 900 ml 700 ml Balance 900 ml 700 ml IV Total 900 ml 700 ml # Voids 2 General Appearance: WD/WN HEENT: normocephalic Respiratory/Chest: chest wall non-tender, lungs clear Breasts: no masses Cardiovascular: normal peripheral pulses, normal rate Abdomen: normal bowel sounds, soft, non tender Genitourinary: normal external genitalia Skin: no rash 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 Lymphatic: no neck adenopathy Laboratory Tests 11/12/16 05:35: White Blood Count 6.8#, Red Blood Count 3.90L, Hemoglobin 11.4L, Hematocrit 34.9L, Mean Corpuscular Volume 89, Mean Corpuscular Hemoglobin 29.2, Mean Corpuscular Hemoglobin Concent 32.6, Red Cell Distribution Width 12.5, Platelet Count 215, Mean Platelet Volume 6.7, Neutrophils (%) (Auto) 51.3, Lymphocytes (% ) (Auto) 36.5, Monocytes (%) (Auto) 8.7, Eosinophils (%) (Auto) 2.4, Basophils ( %) (Auto) 1.1, Sodium Level 144, Potassium Level 4.0, Chloride Level 107, Carbon Dioxide Level 30, Anion Gap 7, Blood Urea Nitrogen 11, Creatinine 0.6, Estimat Glomerular Filtration Rate > 60, Glucose Level 123H, Calcium Level 8.4L Current Medications Medications (Trade) Dose Ordered Sig/Ronnie Route PRN Reason Start Time Stop Time Status Last Admin Dose Admin Acetaminophen (Tylenol) 650 mg Q4H PRN RECTAL FEVER 11/11/16 02:45 12/11/16 02:44 Al Hydroxide/Mg Hydroxide (Mylanta II) 30 ml Q6H PRN ORAL dyspepsia 11/10/16 23:15 12/10/16 23:14 Dextrose STAT PRN IV Hypoglycemia 11/10/16 23:15 12/10/16 23:14 Dextrose/ Electrolytes (D5 0.45%NS W/ KCl 20mEq) 1,000 ml @ 100 mls/hr Q10H IV 11/11/16 02:34 12/11/16 02:33 11/12/16 08:52 Diphenhydramine HCl (Benadryl) 25 mg Q6H PRN ORAL Itching/Pruritis 11/11/16 03:30 12/11/16 03:29 Famotidine (Pepcid I.v.) 20 mg Q12HR IVP 11/12/16 09:00 12/12/16 08:59 11/12/16 09:25 Heparin Sodium (Porcine) (Heparin 5000 units/ml) 5,000 units EVERY 12 HOURS SUBQ 11/11/16 09:00 12/11/16 08:59 11/12/16 09:30 Hydromorphone HCl (Dilaudid) 0.5 mg Q3H PRN IVP Pain Score 1-3 11/11/16 02:45 11/18/16 02:44 11/12/16 06:38 Hydromorphone HCl (Dilaudid) 1 mg Q3H PRN IVP pain score 4-6 11/11/16 02:45 11/18/16 02:44 11/11/16 21:31 Metoclopramide HCl (Reglan) 10 mg Q6H PRN IVP Nausea & Vomiting 11/11/16 02:45 12/11/16 02:44 Morphine Sulfate (Morphine Sulfate) 2 mg Q4H PRN IVP severe Pain (Pain Scale 7-10) 11/10/16 23:15 11/17/16 23:14 Nitroglycerin (Ntg) 0.4 mg Q5M X 3 DOSES PRN SL Prn Chest Pain 11/10/16 23:15 12/10/16 23:14 Ondansetron HCl (Zofran) 4 mg Q6H PRN IVP Nausea & Vomiting 11/11/16 02:45 12/11/16 02:44 Polyethylene Glycol (Miralax) 17 gm HSPRN PRN ORAL Constipation 11/10/16 23:15 12/10/16 23:14 Temazepam (Restoril) 15 mg HSPRN PRN ORAL Insomnia 11/10/16 23:15 11/17/16 23:14 FABRICE MARTINO Nov 12, 2016 15:12
[2016-11-12] MEDS ORDERED: CEPHALEXIN500 MG ORAL (15:34)
[2016-11-12] MEDS ORDERED: TRAMADOL HCL100 M2 ORAL ×2 (15:37→15:39)
[2016-11-12] MEDS ORDERED: PERI-COLACE TA1 EACH PO (15:40)
--- NOTE | 2016-11-13 08:05 | Discharge Summary ---
Discharge Summary Hospital Course Date of Admission Nov 11, 2016 at 02:45 Date of Discharge Nov 12, 2016 at 15:58 Admitting Diagnosis appendicitis HPI Jen Davison is a 61 year old female who was admitted on Nov 11, 2016 at 02:45 for Appendicitis Hospital Course [id number] Discharge Discharge Disposition Patient was discharged to Home (01) Discharge Diagnoses: Discharge Instructions Discharge Instructions Follow up with: my office in one week Activity: as tolerated For Surgical Patients Clean and Dry: other May shower: Yes Suzy Dominguez NP Nov 13, 2016 08:05
--- NOTE | 2016-11-13 08:29 | Diagnostic Imaging Report ---
Indication:Elevated liver function tests, likely some amylase Technique: Grayscale and duplex Doppler imaging of the abdomen performed. Comparison: None Findings: The liver, demonstrated part of the pancreas, aorta and IVC, both kidneys, spleen appear unremarkable. Gallbladder is absent. There is no biliary ductal dilatation identified. Doppler evaluation of the main portal vein shows patency. There is no ascites. No hydronephrosis seen. Impression: No acute findings cholecystectomy
--- NOTE | 2016-11-13 08:29 | Diagnostic Imaging Report ---
Indication: Chest pain Technique: Single portable AP view of the chest. Findings: Comparison: 06/30/15 Surgical clips again noted in the abdominal right upper quadrant. The bones and extra pulmonary soft tissues, cardiomediastinal silhouette, pulmonary vasculature and parenchyma, and pleural surfaces remain otherwise unremarkable. IMPRESSION: Previous cholecystectomy Otherwise negative portable AP chest, unchanged.
--- NOTE | 2016-11-13 08:30 | Diagnostic Imaging Report ---
Indications: Right lower quadrant abdominal pain Technique: Continuous helical CT imaging of the abdomen and pelvis was performed with automatic exposure control following administration of nonionic IV contrast only, on a Siemens sensation [address] scanner. Axial, coronal, sagittal images were reconstructed at 5 mm slice thickness. No oral contrast was administered per requesting physician's order, despite no contraindications listed in either submitted clinical data or tech note.. CTDI volume(s): 14 mGy Total DLP: 690 mGy-cm Findings: Comparison: None Lack of oral contrast limits evaluation of gastrointestinal tract. Appendix 10 cm diameter, distended and filled with low attenuation material, suggestion of circumferential mural thickening in its base, surrounding stranding. Trace pelvic free fluid. No extraluminal gas or loculated fluid collections. Remainder of tract nondilated throughout. Portions of stomach, segments of colon--mural thickening not excludable. Gallbladder absent. Surgical clips in gallbladder fossa. Bile ducts mildly dilated without obvious obstructing stone or mass. Liver, pancreas, spleen, adrenal glands, kidneys, unopacified ureters and urinary bladder, uterus, bilateral adnexal regions, vascular structures, retroperitoneum, remainder of mesentery, remainder visualized abdominopelvic anatomy unremarkable. Lung bases and adjacent pleural surfaces clear. Mild disc space narrowing with marginal osteophyte formation lumbar, lower thoracic spine. IMPRESSION: Findings compatible with acute appendicitis. No evidence of associated perforation or abscess. No other evidence of acute abdominopelvic disease, with limitation as described. Subtle but potentially significant abnormalities the gastrointestinal tract may be missed. Repeat CT scan with full oral and IV contrast preparation recommended for more complete evaluation, as clinically indicated Mild dilation of bile ducts without obvious obstructive etiology, most likely secondary to previous cholecystectomy. Correlate clinically. Degenerative spondylosis This correlates with [facility] preliminary report.
--- NOTE | 2016-11-14 19:57 | Discharge Summary 2 SIG ---
DATE OF ADMISSION: 11/11/2016 DATE OF DISCHARGE: 11/12/2016 CONSULTANTS: 1. Марина Gibson M.D. 2. José Miguel Mckinney M.D. BRIEF HOSPITAL COURSE: The patient is a 61-year-old female, who presented to ED with acute onset of left-sided chest pain and right lower quadrant sharp nonradiating pain. Blood work showed leukocytosis with left shift. CAT scan of the abdomen showed acute appendicitis. She underwent emergent laparoscopic appendectomy and tolerated procedure well. Postoperatively, she was given pain management and H2 blockers. Diet was advanced and was discharged home to follow up with Dr. Gibson in a week. FINAL DIAGNOSIS: Acute appendicitis, status post laparoscopic appendectomy. Atif Garcia M.D. I have been assigned to dictate discharge summary on this account and I was not involved in the patient's management. Suzy Dominguez N.P. DR: Devyn JOB#: [id number] CC:
== END 2016-11-12 15:58 | disposition home or self-care (01) | DRG 225 ==
LOC: EMR 20:50 → SUR 11-11 00:31 → 3E 11-11 02:45
PROC: 0DTJ4ZZ Resection of Appendix, Percutaneous Endoscopic Approach (ICD-10-PCS; principal; 2016-11-11 01:00)
DX: K35.80 Unspecified acute appendicitis (principal); I10 Essential (primary) hypertension; K21.9 Gastro-esophageal reflux disease without esophagitis
CPT/HCPCS: 36415; 71010; 74177; 76700; 80048; 80053; 82150; 82550; 82553; 83690; 84484; 85007; 85025; 85730; 93005; 94003; 94150; J2250; J2405